=== PATIENT | male | born 1950 | race Caucasian/White ===

== ENCOUNTER → 2024-05-20 | Outpatient (CLI) | payer MEDICARE, SELFPAY ==
[2024-05-20 11:47] LABS: Glucose Estimated Average 166 mg/dL (80-131); Hemoglobin A1C 7.4 % Hgb (4.8-6.0)
[2024-05-20 11:51] LABS: Creatinine MALB Rnd Ur 86 mg/dL (30-125); Microalbumin Creat Ratio 12 mg/gCrea (<30); Microalbumin, Random Urine 10 mg/L (0-300)
[2024-05-20 11:57] LABS: Alanine Aminotransferase 50 U/L (10-49); Alkaline Phosphatase 56 U/L (46-116); Aspartate Amino Transferase 32 U/L (0-34); Bilirubin,Direct 0.5 mg/dL (0.0-0.3); Bilirubin,Total 1.3 mg/dL (0.3-1.2); Cardiac Risk Estimate 1.9 RATIO (4.0-6.7); Cholesterol 97 mg/dL (132-200); Glucose,Fasting 167 mg/dL (74-106); HDL Cholesterol 52 mg/dL (40-60); LDL Cholesterol,Calculated 17 mg/dL (0-130); Triglycerides 141 mg/dL (30-150)
== END | disposition home or self-care (01) ==
LOC: COPL 10:48
PROVIDERS: PCP Internal Medicine; Referring Provider Internal Medicine; Visit Provider Internal Medicine
DX: I10 Essential (primary) hypertension (principal); E78.2 Mixed hyperlipidemia; E11.8 Type 2 diabetes mellitus with unspecified complications
CPT/HCPCS: 36415; 80061; 80076; 82043; 82570; 82947; 83036

== ENCOUNTER → 2024-09-10 | Outpatient (CLI) | payer MEDICARE, SELFPAY ==
[2024-09-10 10:48] LABS: Glucose Estimated Average 212 mg/dL (80-131); Hemoglobin A1C 9.0 % Hgb (4.8-6.0)
[2024-09-10 10:59] LABS: Alanine Aminotransferase 56 U/L (10-49); Albumin, Serum 4.9 gm/dL (3.4-4.8); Alkaline Phosphatase 66 U/L (46-116); Aspartate Amino Transferase 38 U/L (0-34); Bilirubin,Direct 0.5 mg/dL (0.0-0.3); Bilirubin,Total 1.4 mg/dL (0.3-1.2); Cardiac Risk Estimate 2.2 RATIO (4.0-6.7); Cholesterol 95 mg/dL (132-200); Glucose,Fasting 286 mg/dL (74-106); HDL Cholesterol 43 mg/dL (40-60); LDL Cholesterol,Calculated 21 mg/dL (0-130); Total Protein 7.2 gm/dL (5.7-8.2); Triglycerides 155 mg/dL (30-150)
== END | disposition home or self-care (01) ==
LOC: COPL 09:38
PROVIDERS: PCP Internal Medicine; Referring Provider Internal Medicine; Visit Provider Internal Medicine
DX: I10 Essential (primary) hypertension (principal); E78.1 Pure hyperglyceridemia; E11.8 Type 2 diabetes mellitus with unspecified complications
CPT/HCPCS: 36415; 80061; 80076; 82947; 83036

== ENCOUNTER → 2025-01-19 | Outpatient (CLI) | payer MEDICARE, SELFPAY ==
[2025-01-19 11:07] LABS: Glucose Estimated Average 140 mg/dL (80-131); Hemoglobin A1C 6.5 % Hgb (4.8-6.0)
[2025-01-19 11:19] LABS: Alanine Aminotransferase 58 U/L (10-49); Albumin, Serum 5.4 gm/dL (3.4-4.8); Alkaline Phosphatase 57 U/L (46-116); Aspartate Amino Transferase 38 U/L (0-34); Bilirubin,Direct 0.5 mg/dL (0.0-0.3); Bilirubin,Total 1.1 mg/dL (0.3-1.2); Cardiac Risk Estimate 2.3 RATIO (4.0-6.7); Cholesterol 104 mg/dL (132-200); Glucose,Fasting 135 mg/dL (74-106); HDL Cholesterol 46 mg/dL (40-60); LDL Cholesterol,Calculated 30 mg/dL (0-130); Total Protein 7.3 gm/dL (5.7-8.2); Triglycerides 141 mg/dL (30-150)
== END | disposition home or self-care (01) ==
LOC: COPL 09:39
PROVIDERS: PCP Internal Medicine; Referring Provider Internal Medicine; Visit Provider Internal Medicine
DX: E83.52 Hypercalcemia (principal); E78.2 Mixed hyperlipidemia; E11.8 Type 2 diabetes mellitus with unspecified complications; I10 Essential (primary) hypertension
CPT/HCPCS: 36415; 80061; 80076; 82947; 83036